=== PATIENT | male | born 1990 | race Caucasian/White ===

== ENCOUNTER 2016-10-12 17:06 | Emergency (ER) | payer SELFPAY ==
[~2016-10-12] VITALS: Ht 180.3 cm; Wt 81.4 kg
[2016-10-12] MEDS ORDERED: VENTOLIN HFA18 GM IH (18:45)
[2016-10-12] MEDS ORDERED: PREDNISONE10 M1 PO (18:45)
[2016-10-12 19:13] VITALS: BP 137/69
== END 2016-10-12 19:22 | disposition home or self-care (01) ==
LOC: EME 17:06
DX: J20.9 Acute bronchitis, unspecified (principal); Z71.6 Tobacco abuse counseling; F17.200 Nicotine dependence, unspecified, uncomplicated
CPT/HCPCS: 71020; 94640; 99281; 99284

== ENCOUNTER 2016-10-17 13:35 | Emergency (ER) | payer SELFPAY ==
[~2016-10-17] VITALS: Ht 180.3 cm; Wt 79.7 kg
[~2016-10-17 13:35] MED LIST: PREDNISONE10 M1 PO; VENTOLIN HFA18 GM IH
[2016-10-17 15:08] VITALS: BP 129/83
== END 2016-10-17 15:17 | disposition home or self-care (01) ==
LOC: EME 13:35
DX: J40 Bronchitis, not specified as acute or chronic (principal); F17.200 Nicotine dependence, unspecified, uncomplicated
CPT/HCPCS: 99281; 99283

== ENCOUNTER 2016-10-28 14:16 | Emergency (ER) | payer OTHER ==
[~2016-10-28] VITALS: Ht 180.3 cm; Wt 77.7 kg
[2016-10-28 17:11] LABS: HEMATOCRIT 42.4 % (38.0-50.0); MCH 28.5 PG (29.0-34.0); MCHC 33.3 G/DL (30.0-36.0); MCV 85.8 FL (86-99); MEAN PLAT.VOLUME 10.4 uM^3 (9.0-12.4); PLATELET COUNT 198 K/uL (156-360); RBC DIS.WIDTH-CV 13.2 % (11.8-14.6); RBC DIS.WIDTH-SD 41.4 % (39-53); RED BLOOD COUNT 4.94 M/uL (4.00-5.50); WHITE BLOOD COUNT 7.6 K/uL (4.1-10.2)
[2016-10-28 17:19] LABS: CHLORIDE 104 mEq/L (99-109); POTASSIUM 3.9 mEq/L (3.7-5.4); SODIUM 138 mEq/L (136-147)
[2016-10-28 17:21] LABS: GLUCOSE 78 mg/dL (70-99)
[2016-10-28 17:22] LABS: ANION GAP 10 MEQ/L (2-14)
[2016-10-28 17:25] LABS: GFR ESTIMATE (CALCULATED) > 59 mL/min/
[2016-10-28 17:26] LABS: UREA NITROGEN (BUN) 9 mg/dL (9-23)
[2016-10-28] MEDS ORDERED: KEFLEX500 MG PO (20:39)
[2016-10-28 20:50] VITALS: BP 110/66
== END 2016-10-28 20:51 | disposition home or self-care (01) ==
LOC: EME 14:16
PROVIDERS: Physician Assistant Medical
DX: S30.811A Abrasion of abdominal wall, initial encounter (principal); R10.9 Unspecified abdominal pain; W20.8XXA Other cause of strike by thrown, projected or falling object, initial encounter; F17.200 Nicotine dependence, unspecified, uncomplicated
CPT/HCPCS: 74177; 80048; 85027; 99281; 99284; J1885; J7030